=== PATIENT | female | born 1975 | race Caucasian/White ===

== ENCOUNTER 2017-08-05 08:22 | Emergency (ER) | payer OTHER ==
[~2017-08-05] VITALS: Ht 167.6 cm; Wt 120.9 kg
[2017-08-05 08:35] VITALS: TEMP 37.2; Ht 167.6 cm; Wt 120.9 kg
[2017-08-05] MEDS ORDERED: SODIUM CHLORIDE 0.9% 1000ML 1,000 ML IV STA (09:30)
[2017-08-05] MEDS ORDERED: ONDANSETRON INJ 2 MG/ML 2 ML VIAL IV STA ×2 (09:30→10:40)
[2017-08-05] MEDS ORDERED: MoRPHine SULFATE 10 MG/ML CARP/VIAL IV STA (09:30)
[2017-08-05] MEDS ORDERED: OPTIRAY 320 IV PRN (09:45)
[2017-08-05 09:56] LABS: BASO % 0.5 %; BASO ABS # 0.04 K/uL (0-0.2); EOS % 3.8 %; HEMATOCRIT 39.3 % (37-47); HEMOGLOBIN 13.5 g/dL (12.0-16.0); IG# 0.02 K/uL (0.00-0.02); MEAN CELL VOLUME 80.7 fL (80-100); MEAN CORPUSCULAR HEMOGLOBIN 27.7 pg (25-34); MEAN CORPUSCULAR HGB CONC 34.4 g/dl (32-36); MEAN PLATELET VOLUME 10.6 fL (7.4-10.4); MONO % 4.5 %; MONO ABS # 0.35 K/uL (0.11-0.59); NEUT % 58.9 %; NEUT ABS # 4.61 K/uL (1.4-6.5); PLATELET COUNT 188 K/uL (130-400); RED CELL DISTRIBUTION WIDTH CV 14.7 % (11.5-14.5); WHITE BLOOD COUNT 7.82 K/uL (4.8-10.8)
[2017-08-05 10:12] LABS: ALBUMIN 3.8 gm/dl (3.4-5.0); CALCIUM 9.4 mg/dl (8.5-10.1); CREATININE 1.16 mg/dl (0.60-1.20); POTASSIUM 4.1 mmol/L (3.5-5.1)
[2017-08-05 10:15] LABS: TOTAL PROTEIN 8.2 gm/dl (6.4-8.2)
[2017-08-05] MEDS ORDERED: PATIENT'S ALLERGY INFO NEEDS ENTERED SCH (10:15)
--- NOTE | 2017-08-05 10:29 | DIAGNOSTIC IMAGING REPORT ---
CHEST 2 VIEWS ROUTINE CLINICAL HISTORY: Abdominal pain. Dyspnea on exertion. COMPARISON STUDY: No previous studies for comparison. FINDINGS: The lung volumes are normal. No pneumothorax or pleural effusion is noted. Lungs are clear. Cardiac size is normal. Mediastinal contours are normal. There is no evidence for pulmonary edema. IMPRESSION: No acute cardiopulmonary findings. Electronically signed by: Beltran Laws M.D. 08/05/2017 10:27 AM Dictated Date/Time: 08/05/2017 10:27 AM
[2017-08-05] MEDS ORDERED: HYDROmorphone INJ 1 MG/ML SYR IV STA (10:38)
--- NOTE | 2017-08-05 12:41 | DIAGNOSTIC IMAGING REPORT ---
ABD/PELVIS IV AND ORAL CONT CT DOSE: 1576.72 mGy.cm HISTORY: Pain ABDOMINAL PAIN/GI TECHNIQUE: Multiaxial CT images of the abdomen and pelvis were performed following the use of intravenous and oral contrast. A dose lowering technique was utilized adhering to the principles of ALARA. COMPARISON STUDY: None. FINDINGS: Lung bases are clear. Mild fatty infiltration of liver. Uniform enhancement. Prior cholecystectomy. Pancreas is unremarkable. Right kidney shows moderate cortical scarring. Left kidney shows similar cortical scarring with 2 low density nodules versus hyperdense cyst at the inferior and mid aspect left kidney. These measure 1.8 cm. 8 mm exophytic cyst medial aspect left kidney. The bowel pattern is nonobstructive. Evidence for prior appendectomy. Uterus is anteflexed. 1.7 cm left ovarian cyst. 1.2 cm right ovarian cyst. No significant fluid within the pelvic cul-de-sac. IMPRESSION: 1. Cortical scarring of the kidneys bilaterally with 2 hyperdense cysts versus nodular lesions of the left kidney. These measure 1.8 cm respectively 2. Renal ultrasonography is suggested as initial follow-up. 3. Examination is otherwise negative post appendectomy and cholecystectomy. 4. Small bilateral ovarian cysts. The above report was generated using voice recognition software. It may contain grammatical, syntax or spelling errors. Electronically signed by: Jose Mcpherson M.D. 08/05/2017 12:40 PM Dictated Date/Time: 08/05/2017 12:33 PM
[2017-08-05] MEDS ORDERED: HYDR-5688 PO (13:12)
[2017-08-05 13:24] VITALS: BP 147/104; PULSE 86; O2SAT 97
--- NOTE | 2017-08-05 17:33 | EMERGENCY ROOM VISIT NOTE ---
ED Visit Note First contact with patient: 08:44 Chief Complaint: Right flank pain. History of Present Illness: Ms. Cruz is a 41-year-old white female who ambulates into the ED accompanied by male friend complaining of right flank pain. Historically patient reports she has a history of chronic pancreatitis and she is status post cholecystectomy and appendectomy. Patient reports approximately 7 days ago patient had an acute onset of right flank pain. Since that time her pain has been constant but has waxed and waned in intensity. Initially she thought she might have strained a muscle and was treating her discomfort with heating pads and ibuprofen. Then the pain started radiating into the epigastric area after 2 days. She was seen in the ED at [facility]. On her workup lab report showed that her lipase was elevated and an abdominal/pelvic noncontrast CT shows no specific cause; they were evaluating for possible nephrolithiasis. She called her PCP today and was encouraged to come to this hospital for further evaluation and care. Currently patient is complaining of right flank pain. She has difficulty describing her discomfort. She rates her discomfort 9/10. Her pain is radiating into the epigastrium area. Her discomfort worsens with deep inspiration. She has not identified any alleviating factors related to the pain. Associated with her pain she reports she has had constant nausea and the first few days of her illness she was vomiting bile-like material and now she is just dry heaving. Additionally she reports that she is having some watery stools and she is having chills but no low fever. She denies upper respiratory tract symptoms, cough, wheezing, shortness of breath, chest pain, lower abdominal pain, hematemesis, hematochezia, melena, urinary symptoms, hematuria, vaginal bleeding, vaginal discharge. Review of Systems: As noted above in history of present illness. All body systems were reviewed and found to be negative as noted above. Past Medical History: Acute respiratory failure, acute kidney injury, alcohol withdrawal, type 2 diabetes, cervical dysplasia, history of alcohol abuse, hypertension, dyslipidemia. Current Medications: Patient denies. Allergies to Medications: [place]. Social History: Patient is not employed; she feels safe in her home environment ; she is a previous smoker and denies alcohol use. Physical Examination: Vital Signs: Date Time Temp Pulse Resp B/P (MAP) Pulse Ox O2 Delivery O2 Flow Rate FiO2 08/05/17 13:24 86 17 147/104 97 Room Air 08/05/17 12:15 70 20 120/72 99 Room Air 08/05/17 10:45 67 20 124/55 100 Room Air 08/05/17 10:00 84 08/05/17 09:55 88 18 140/95 95 Room Air 08/05/17 08:35 37.2 88 17 137/91 100 Room Air GENERAL: 41-year-old female in mild to moderate distress due to pain, nontoxic- appearing, afebrile and hemodynamically stable. NEUROLOGICAL: Awake, alert and oriented to person, place and time. Answering questions appropriately and following commands. Normal gait. Good hand eye coordination. No focal motor sensory deficits. SKIN: Warm, dry and pink. No soft tissue eruptions or trauma noted. HEENT: Atraumatic and normocephalic. PERRLA. Sclera white and conjunctiva pink. No drainage from naris. Oral cavity moist and pink. Pharynx is nonerythematous or edematous. Speech normal. No lymphadenopathy. Trachea midline. No jugular venous distention. BACK: No tenderness over the bony spine. No tenderness throughout the paraspinous musculature. Moderate right sided CVA tenderness. THORAX: Lungs sounds are clear to auscultation and equal bilaterally with symmetrical chest wall. No wheezing, rales or rhonchi. No crepitus, tenderness , subcutaneous air or deformities noted. HEART: Regular rate and rhythm. No gallops, rubs or murmurs are appreciated. ABDOMEN: Obese and soft with moderate tenderness in the epigastrium.. Positive bowel sounds in all quadrants. No guarding, rigidity or organomegaly. EXTREMITIES: Moves all extremities well on command and with purpose. All distal neurovascular statuses are intact and equal bilaterally. ED Course: Patient is assessed as noted above. Patient's medication list was reviewed. Laboratory Testing Test 08/05/17 09:41 08/05/17 09:45 08/05/17 09:51 Range/Units Urine Color DK YELLOW Urine Appearance CLOUDY CLEAR Urine pH 6.0 4.5-7.5 Urine Specific [place] 1.030 1.000-1.030 Urine Protein 1+ NEG Urine Glucose (UA) 2+ NEG Urine Ketones TRACE NEG Urine Occult Blood NEG NEG Urine Nitrite NEG NEG Urine Bilirubin NEG NEG Urine Urobilinogen NEG NEG Urine Leukocyte Esterase NEG NEG Urine WBC (Auto) 1-5 0-5 /hpf Urine RBC (Auto) >30 0-4 /hpf Urine Hyaline Casts (Auto) 1-5 0-5 /lpf Urine Epithelial Cells (Auto) >30 0-5 /lpf Urine Bacteria (Auto) NEG NEG White Blood Count 7.82 4.8-10.8 K/uL Red Blood Count 4.87 4.2-5.4 M/uL Hemoglobin 13.5 12.0-16.0 g/dL Hematocrit 39.3 37-47 % Mean Corpuscular Volume 80.7 80-100 fL Mean Corpuscular Hemoglobin 27.7 25-34 pg Mean Corpuscular Hemoglobin Concent 34.4 32-36 g/dl Platelet Count 188 130-400 K/uL Mean Platelet Volume 10.6 7.4-10.4 fL Neutrophils (%) (Auto) 58.9 % Lymphocytes (%) (Auto) 32.0 % Monocytes (%) (Auto) 4.5 % Eosinophils (%) (Auto) 3.8 % Basophils (%) (Auto) 0.5 % Neutrophils # (Auto) 4.61 1.4-6.5 K/uL Lymphocytes # (Auto) 2.50 1.2-3.4 K/uL Monocytes # (Auto) 0.35 0.11-0.59 K/uL Eosinophils # (Auto) 0.30 0-0.5 K/uL Basophils # (Auto) 0.04 0-0.2 K/uL RDW Standard Deviation 43.0 36.4-46.3 fL RDW Coefficient of Variation 14.7 11.5-14.5 % Immature Granulocyte % (Auto) 0.3 % Immature Granulocyte # (Auto) 0.02 0.00-0.02 K/uL Sodium Level 134 136-145 mmol/L Potassium Level 4.1 3.5-5.1 mmol/L Chloride Level 103 98-107 mmol/L Carbon Dioxide Level 23 21-32 mmol/L Anion Gap 8.0 3-11 mmol/L Blood Urea Nitrogen 11 7-18 mg/dl Creatinine 1.16 0.60-1.20 mg/dl Est Creatinine Clear Calc Drug Dose 84.6 ml/min Estimated GFR () 67.7 Estimated GFR (Non- 58.4 BUN/Creatinine Ratio 9.8 10-20 Random Glucose 221 70-99 mg/dl Calcium Level 9.4 8.5-10.1 mg/dl Total Bilirubin 0.7 0.2-1 mg/dl Direct Bilirubin 0.1 0-0.2 mg/dl Aspartate Amino Transf (AST/SGOT) 22 15-37 U/L Alanine Aminotransferase (ALT/SGPT) 33 12-78 U/L Alkaline Phosphatase 81 45-117 U/L Total Protein 8.2 6.4-8.2 gm/dl Albumin 3.8 3.4-5.0 gm/dl Amylase Level 49 25-115 U/L Lipase 289 73-393 U/L Bedside Troponin I < 0.030 0-0.045 ng/ml Chest X-Rays: Were read by myself and shows no acute infiltrates, effusions or pneumothorax. Normal heart silhouette and bony anatomy. Contrast Abdominal/Pelvic CT: Was reviewed by myself and read by the radiologist showing cortical scarring of the kidneys bilaterally with 2 hyperdense cysts versus lesions of the left kidney, exam and is otherwise negative status post appendectomy cholecystectomy and small bilateral ovarian cysts. EKG: Was read by myself and shows normal sinus rhythm with a ventricular rate of 80 bpm. Normal axis, intervals and complexes. No acute ST changes indicating ischemia, injury or infarction. No previous to compare. Patient was hydrated with normal saline and she initially received 8 mg of morphine IV for pain and 4 mg of Zofran IV. On reassessment patient complained of exacerbation pain and she received 1 mg of Dilaudid IV and an additional dose of 4 mg of Zofran IV. Patient was reassessed multiple times during her stay in the emergency department. Patient's case was reviewed with Dr. Sarmiento; we agreed on diagnostic approach, treatment, disposition and plan. Patient was educated about today's findings and instructed on her treatment plan ; she verbalizes understanding and agreement with plan. Clinical Impression: Flank pain. Epigastric abdominal pain. Decision-Making: Initially my differential diagnosis I considered retained gallstone, kidney stone, pyelonephritis, hepatitis, pancreatitis, bowel obstruction and other causes. Disposition: Patient discharged home in stable condition; prior to departure she was reassessed and subjectively reported she was feeling better and rated her discomfort 6/10. She reported resolution of nausea also. Plan: Patient was placed on a sliding pain medication scale of ibuprofen, acetaminophen and [place]; her name was checked on the state database and no red flags are noted. She is given appropriate narcotic precautions. Patient reports that she was prescribed Zofran from her last ED visit and I encouraged her to use that. Patient was encouraged to contact her family physician for recheck and possible referral to see GI specialist. Patient was encouraged return the ED for worsening pain, worsening vomiting, bloody vomitus, fevers or any new/concerning symptoms.
== END 2017-08-05 13:28 | disposition home or self-care (01) ==
LOC: C.EDB 08:25
DX: R10.13 Epigastric pain (principal); N83.201 Unspecified ovarian cyst, right side; N83.202 Unspecified ovarian cyst, left side; I10 Essential (primary) hypertension; E11.9 Type 2 diabetes mellitus without complications; E78.5 Hyperlipidemia, unspecified; F10.21 Alcohol dependence, in remission; Z90.49 Acquired absence of other specified parts of digestive tract; Z87.891 Personal history of nicotine dependence; Z87.09 Personal history of other diseases of the respiratory system; Z87.410 Personal history of cervical dysplasia

== ENCOUNTER 2025-02-20 12:19 | Inpatient (IN) ==
[2025-02-20] MEDS: ACETAMINOPHEN 500 MG TAB PO STA (13:08)
[2025-02-20] MEDS: IBUPROFEN 600 MG TAB PO STA (13:09)
--- NOTE | 2025-02-20 13:12 | XRay Report ---
XR pelvis 1-2V routine CLINICAL HISTORY: fall COMPARISON: 10/08/2017 FINDINGS: No fracture or dislocation. No significant degenerative change at the hips. SI joints are unremarkable. There are lower lumbar degenerative changes. IMPRESSION: No fracture seen at the pelvis or hips. ACT 112: Negative or not required by law. Electronically signed by: Live Villatoro M.D. 02/20/2025 1:11 PM
--- NOTE | 2025-02-20 13:13 | XRay Report ---
XR chest 1V portable CLINICAL HISTORY: fall COMPARISON STUDY: None FINDINGS: Heart size and pulmonary vasculature are normal. No consolidation or pleural effusion. No p neumothorax. No displaced rib fractures seen. IMPRESSION: No acute findings seen. ACT 112: Negative or not required by law. Electronically signed by: Live Villatoro M.D. 02/20/2025 1:12 PM
--- NOTE | 2025-02-20 13:14 | XRay Report ---
XR hand RT min 3V routine CLINICAL HISTORY: fall out of truck COMPARISON: None FINDINGS: No fracture or dislocation. No significant degenerative change. IMPRESSION: No fracture seen. ACT 112: Negative or not required by law. Electronically signed by: Live Villatoro M.D. 02/20/2025 1:13 PM
[2025-02-20 13:32] LABS: Appearance Urine Clear (Clear); Bacteria Urine Automated None Seen (None Seen); Cast Urine Automated 0-2 /lpf (0-2); Glucose Urine UA 3+ (Negative); RBC Urine Automated 0-2 /hpf (0-2); WBC Urine Automated 0-5 /hpf (0-5)
[2025-02-20 13:38] LABS: Alanine Aminotransferase 27.0 U/L (7-52); Albumin Globulin Ratio 1.0 (0.9-2); Albumin Level 4.1 gm/dl (3.4-5.0); Alkaline Phosphatase 74.0 U/L (34-104); Anion Gap 14.0 (3-11); Bilirubin,Total 0.5 mg/dl (0.2-1.0); Blood Urea Nitrogen 11.0 mg/dl (6-23); Calcium 9.7 mg/dl (8.6-10.3); Carbon Dioxide 21.0 mmol/L (21-32); Chloride 102.0 mmol/L (98-107); Creatinine Clr Calc Pharmacy 85.7 ml/min; Globulin 4.1 gm/dl (2.5-4.0); Glucose 480.0 mg/dl (70-99(Fasting)); Potassium 4.1 mmol/L (3.5-5.1); Sodium 137.0 mmol/L (136-145); Total Protein 8.2 gm/dl (6.0-8.3)
[2025-02-20 13:48] LABS: Thyroid Stimulating Hormone 0.609 uIu/ml (0.300-4.500)
[2025-02-20 13:54] LABS: Acetaminophen < 3 ug/ml (10-30); Salicylate < 3.0 mg/dl (3.0-30)
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
[2025-02-20 14:01] LABS: Amphetamines+Metham, Urine Neg (Neg); MDMA (Ecstacy), Urine Neg (Neg); Marijuana, Urine Neg (Neg)
[2025-02-20 14:31] LABS: ALC (manual) 2.31 K/uL (1.2-3.4); ANC (manual) 1.34 K/uL (1.4-6.5); Hematocrit (blood only) 43.6 % (37.0-47.0); Hemoglobin 15.5 g/dl (12.0-16.0); Large Granular Lymph # (manua 1.01 K/uL; Large Granular Lymph % (manual) 25 %; Mean Corpuscular Hemoglobin 30.7 pg (25.0-34.0); Mean Corpuscular Volume 86.3 fL (80.0-100.0); Platelet Count 114 K/uL (130-400); RBC Morphology Unremarkable; RDW Standard Deviation 41.6 fL (36.4-46.3); Red Blood Count 5.05 M/uL (4.20-5.40); White Blood Count 4.05 K/ul (4.8-10.8)
[2025-02-20] MEDS: THIAMINE HCL 100 MG TAB PO ONE (15:38)
[2025-02-20] MEDS: MULTIVITAMIN TAB PO ONE (15:38)
[2025-02-20] MEDS: LORazepam 1 MG/1 ML SYR ED Inj Use IV STA ×2 (15:39→19:27)
[2025-02-20] MEDS: FOLIC ACID 1 MG TAB PO ONE (15:39)
[2025-02-20] MEDS: SODIUM CHLORIDE 0.9% 1,000 ML IV ONE (15:39)
[2025-02-20] MEDS: INSULIN ASPART PER UNIT CHARGE SC STA (16:05)
--- NOTE | 2025-02-20 16:27 | Emergency Department Note ---
ED Visit Note I assumed care at the change of shift. The patient was receiving IV saline for hydration. She was found to be intoxicated with alcohol. She had made suicidal threats. She was a 302 petition/involuntary psychiatric admission. She was to be evaluated by psychiatry case management at 1900, once clinically sober. The patient did become a bit agitated and was ordered for 2 mg of IV Ativan. This seemed to help, her blood pressure also improved with the Ativan. The patient was seen by psychiatry case management. She was felt to be impulsive and at risk for self-harm. Given the circumstances and her presentation, the 302 petition was upheld. I did sign the medical portion. As the patient has been hyperglycemic, hypertensive and likely will be withdrawing from alcohol, she will be admitted medically with a psych consult. I did speak with the case management team at length, I spoke with the on-call hospitalist. The patient is aware of the plan. .
[2025-02-20] MEDS ORDERED: INSULIN ASPART PER UNIT CHARGE SC SCH (16:30)
[2025-02-20] MEDS: LANTUS PER UNIT CHARGE SQ SCH ×2 (16:40→22:09)
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
[2025-02-20] MEDS ORDERED: GABAPENTIN 1200MG ALCOHOL WITHDRAWAL LOAD PO STA (19:38)
[2025-02-20] MEDS ORDERED: GLUCOSE 40% GEL 15 GM TUBE PO PRN (19:38)
[2025-02-20] MEDS ORDERED: ACETAMINOPHEN 325 MG TAB PO PRN (19:38)
[2025-02-20] MEDS ORDERED: CARBOHYDRATES FOR HYPOGLYCEMIA PO PRN (19:38)
[2025-02-20] MEDS ORDERED: DEXTROSE 50% 50 ML SYRINGE IV PRN (19:38)
[2025-02-20] MEDS ORDERED: GLUCOSE 10 TAB/TUBE PO PRN (19:38)
[2025-02-20] MEDS ORDERED: PHARMACY GLYCEMIC MGMT CONSULT PRN (19:38)
[2025-02-20] MEDS ORDERED: POLYETHYLENE (MIRALAX) 17 GM PACK PO PRN (19:38)
[2025-02-20] MEDS ORDERED: GLUCAGON FOR INJ 1 MG VIAL SQ PRN (19:38)
[2025-02-20] MEDS ORDERED: LORAZEPAM IV PRN (19:51)
[2025-02-20] MEDS: GABAPENTIN 600 MG TAB PO ONE (20:18)
[2025-02-20] MEDS ORDERED: PRAZOSIN HCL 1 MG CAP PO SCH (21:00)
[2025-02-20] MEDS ORDERED: MIRTAZAPINE TAB 15 MG TAB PO SCH (21:00)
[2025-02-20] MEDS: INSULIN ASPART PER UNIT CHARGE SC SCH (22:10)
[2025-02-20] MEDS: ONDANSETRON INJ 2 MG/ML 2 ML VIAL IV PRN (22:10)
[2025-02-20] MEDS: LORazepam Inj 1 MG in SYRINGE 0.5 ML IV PRN (23:26)
[2025-02-21] MEDS: INSULIN ASPART PER UNIT CHARGE SC SCH (00:57)
[2025-02-21] MEDS: GABAPENTIN 600 MG TAB PO SCH (01:32)
[2025-02-21 07:55] LABS: Anion Gap 5.0 (3-11); Blood Urea Nitrogen 10.0 mg/dl (6-23); Calcium 8.6 mg/dl (8.6-10.3); Carbon Dioxide 28.0 mmol/L (21-32); Chloride 106.0 mmol/L (98-107); Creatinine Clr Calc Pharmacy 95.1 ml/min; Glucose 262.0 mg/dl (70-99(Fasting)); Potassium 3.6 mmol/L (3.5-5.1); Sodium 139.0 mmol/L (136-145)
[2025-02-21 08:11] LABS: Hematocrit (blood only) 38.4 % (37.0-47.0); Hemoglobin 13.3 g/dl (12.0-16.0); Mean Corpuscular Hemoglobin 30.9 pg (25.0-34.0); Mean Corpuscular Volume 89.3 fL (80.0-100.0); Platelet Count 85 K/uL (130-400); RDW Standard Deviation 45.2 fL (36.4-46.3); Red Blood Count 4.30 M/uL (4.20-5.40); White Blood Count 4.16 K/ul (4.8-10.8)
--- NOTE | 2025-02-21 08:16 | Pharmacy Report ---
Pharmacy Glycemic Short Note 2 - Date of Service February 21, 2025 - Glycemic Short BSG Results (Last 24 hours): 02/20/25 02/20/25 02/20/25 12:57 16:33 17:43 Glucose 480 H* POC Glucose 326 H* 302 H* 02/20/25 02/20/25 02/21/25 21:36 23:31 07:01 Glucose 262 H POC Glucose 277 H 255 H 02/21/25 08:02 Glucose POC Glucose 294 H OUTPATIENT ANTIDIABETIC REGIMEN: * Lantus, Lispro - hasn't started taking yet, unsure of doses ASSESSMENT: * 49 year old admitted with suicidal ideation/ETOH abuse. Type 2 diabetic - prescribed insulin a couple days ago, but has not yet started to take. BSGs >400 on admission. Received total of 40 units of insulin yesterday, of which 20 units were basal. Fasting BSG 262 mg/dL - will titrate up to Lantus 25 units daily and tighten CF/CR this AM PLAN FOR INPATIENT GLYCEMIC CONTROL: * Hold outpatient oral diabetes medications * Basal insulin * Lantus 25 units SQ once daily * Bolus insulin * NovoLog per scale ACHS or Q6hrs while NPO * Goal Range: Low 110 mg/dL - High 140 mg/dL * Correction Factor: 15 mg/dL/unit * Nutritional / Prandial insulin per carb ratio of 1 unit per 5 grams CHO consumed
[2025-02-21] MEDS: FOLIC ACID 1 MG TAB PO SCH (08:59)
[2025-02-21] MEDS: MULTIVITAMIN TAB PO SCH (09:00)
[2025-02-21] MEDS: THIAMINE HCL 100 MG TAB PO SCH (09:00)
[2025-02-21 09:07] LABS: Hemoglobin A1C 12.3 % (4.5-5.6)
[2025-02-21] MEDS: LANTUS PER UNIT CHARGE SQ SCH ×2 (10:10→20:17)
[2025-02-21] MEDS: LORazepam Inj 2 MG in SYRINGE 1 ML IV PRN (11:07)
[2025-02-21] MEDS ORDERED: PHENobarbital PO Alcohol Withdrawal PO STA (11:38)
--- NOTE | 2025-02-21 11:52 | Hospitalist Progress Note ---
Date of Service February 21, 2025 Assessment & Plan (1) Alcohol withdrawal with complication with inpatient treatment: (2) Hyperglycemia due to type 2 diabetes mellitus: (3) Diabetes mellitus type 2, insulin dependent: (4) Alcohol use disorder: (5) Major depressive disorder: (6) Suicidal ideation: (7) HTN (hypertension): (8) Thrombocytopenia: Plan Patient 49-year-old female initially presented intoxicated on alcohol with suicidal thoughts. Admitted under 302 for alcohol withdrawal. Patient admits to drinking excessive amounts of alcohol on a regular basis. Patient is extremely high risk for severe alcohol withdrawal symptoms and delirium tremors. Patient needs management in the hospital with close monitoring. Patient was already needing as needed lorazepam to manage symptoms. With her previous history of gabapentin abuse concerned that this would not be effective treatment option for her. Transfer to PCU Start phenobarbital IM loading doses for alcohol withdraw and continue with oral taper. As needed phenobarbital for increased CIWA score. Replace potassium Follow electrolytes Patient's thrombocytopenia and mild leukopenia most likely due to bone marrow suppression resulting from her excessive and chronic alcohol use. Will continue to monitor. Communication with behavioral health staff, evaluations ongoing Case management updated as well and will continue to work with patient and family to determine most appropriate plans for disposition Admission and Anticipated Discharge Date Admission Date: February 20, 2025 Subjective Patient complains of headache, body aches, anxiety and tremor. Also indicates that she has a history of gabapentin misuse/dependency. He does not feel any benefits from current gabapentin dosing. Physical Exam Physical Exam: Constitutional: Alert, moderate distress HEENT: Mucous membranes moist. Lungs: Clear to auscultation, decreased, no wheezes rales or rhonchi CV: S1-S2, regular Abdomen: Soft, nontender, nondistended Extremities: No significant edema Neuro: Tremor, generally weak Psych: Cooperative, depressed affect, tearful, admitting to suicidal ideation yesterday Results & Data Results & Data Vital Signs (Past 12 Hours) Vital Signs Temp Pulse Resp BP Pulse Ox Pulse Ox O2 Del Method 02/21/25 09:40 36.5 C 87 20 150/89 H 96 Room Air 02/21/25 08:54 36.6 C 79 15 167/99 H 97 Room Air 02/21/25 04:56 36.4 C L 71 18 122/81 94 Room Air 02/21/25 00:53 36.8 C 87 18 106/72 97 Room Air 02/21/25 00:00 96 O2 Del Method 02/21/25 09:40 02/21/25 08:54 02/21/25 04:56 02/21/25 00:53 02/21/25 00:00 Room Air Diagnostic Findings Reviewed imaging, laboratory and diagnostic studies. Pertinent findings as below. WBCs 4.1 Hemoglobin 13.3 Platelets of 85 Electrolytes stable Creatinine 0.88 Hemoglobin A1c 12.3% LFTs within normal range
[2025-02-21] MEDS: POTASSIUM CHLORIDE CRTAB 20 MEQ TABCR PO STA (14:10)
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
[2025-02-21] MEDS ORDERED: GABAPENTIN 600 MG TAB PO SCH (15:30)
--- NOTE | 2025-02-21 18:01 | Electrocardiogram Report ---
Test Reason : Blood Pressure : */* mmHG Vent. Rate : 103 BPM Atrial Rate : 103 BPM P-R Int : 134 ms QRS Dur : 92 ms QT Int : 342 ms P-R-T Axes : 60 -5 53 degrees QTcB Int : 448 ms Sinus tachycardia with occasional Premature ventricular complexes Otherwise normal ECG When compared with ECG of 05-Aug-2017 09:41, Premature ventricular complexes are now Present Confirmed by Max Pena ([id number]) on 02/21/2025 6:00:42 PM Referred By: REFERRED SELF Confirmed By: Max Pena
[2025-02-22] MEDS: INSULIN ASPART PER UNIT CHARGE SC SCH (01:01)
[2025-02-22] MEDS: MELATONIN 3 MG TAB PO PRN (02:33)
[2025-02-22 03:03] VITALS: RESP 18
[2025-02-22 06:18] LABS: Hematocrit (blood only) 39.0 % (37.0-47.0); Hemoglobin 13.3 g/dl (12.0-16.0); Mean Corpuscular Hemoglobin 30.5 pg (25.0-34.0); Mean Corpuscular Volume 89.4 fL (80.0-100.0); Platelet Count 84 K/uL (130-400); RDW Standard Deviation 44.5 fL (36.4-46.3); Red Blood Count 4.36 M/uL (4.20-5.40); White Blood Count 4.62 K/ul (4.8-10.8)
[2025-02-22 06:34] LABS: Anion Gap 7.0 (3-11); Blood Urea Nitrogen 12.0 mg/dl (6-23); Calcium 8.9 mg/dl (8.6-10.3); Carbon Dioxide 25.0 mmol/L (21-32); Chloride 104.0 mmol/L (98-107); Creatinine Clr Calc Pharmacy 94.7 ml/min; Glucose 228.0 mg/dl (70-99(Fasting)); Magnesium 1.7 mg/dl (1.7-2.4); Potassium 4.0 mmol/L (3.5-5.1); Sodium 136.0 mmol/L (136-145)
--- NOTE | 2025-02-22 11:43 | Pharmacy Report ---
Pharmacy Glycemic Short Note 2 - Date of Service February 22, 2025 - Glycemic Short BSG Results (Last 24 hours): 02/21/25 02/21/25 02/21/25 12:08 12:09 12:34 Glucose POC Glucose 329 H* 287 H 237 H 02/21/25 02/21/25 02/21/25 12:57 16:27 20:13 Glucose 273 H POC Glucose 204 H 123 H 02/22/25 02/22/25 02/22/25 00:57 05:44 08:38 Glucose 228 H POC Glucose 154 H 213 H 02/22/25 11:13 Glucose POC Glucose 227 H OUTPATIENT ANTIDIABETIC REGIMEN: * Lantus, Lispro - hasn't started taking yet, unsure of doses * HbA1c: 12.3% (02/21/25) ASSESSMENT: 02/22: * Tosin received 86 units of insulin yesterday, 25 of which were basal. BSGs were: 220-355-138-123 mg/dL. * Fasting BSG was 213 mg/dL this AM. Continue with 25 units of basal this AM. Will ordered a scaled basal HS dose to provider either 5, 10, or 15 units depending on the BSG. Expecting basal to have a significant basal deficiency and once it reaches steady state, we may need to back off basal dosing. * Ordered and tolerating a T2DM diet. Tightened carb ratio this AM and lunchtime BSG still went up. Will tighten correction factor with lunch. 02/21: * 49 year old admitted with suicidal ideation/ETOH abuse. Type 2 diabetic - prescribed insulin a couple days ago, but has not yet started to take. BSGs >400 on admission. Received total of 40 units of insulin yesterday, of which 20 units were basal. Fasting BSG 262 mg/dL - will titrate up to Lantus 25 units daily and tighten CF/CR this AM PLAN FOR INPATIENT GLYCEMIC CONTROL: * Basal insulin * Lantus 25 units SC AM * Lantus 5-15 units SC PM (see eMAR for more details) * Bolus insulin * NovoLog per scale ACHS or Q6hrs while NPO * Goal Range: Low 110 mg/dL - High 140 mg/dL * Correction Factor: 12 mg/dL/unit * Nutritional / Prandial insulin per carb ratio of 1 unit per 4 grams CHO consumed
--- NOTE | 2025-02-22 11:52 | Hospitalist Progress Note ---
Date of Service February 22, 2025 Assessment & Plan (1) Alcohol withdrawal with complication with inpatient treatment: (2) Hyperglycemia due to type 2 diabetes mellitus: (3) Diabetes mellitus type 2, insulin dependent: (4) Alcohol use disorder: (5) Major depressive disorder: (6) Suicidal ideation: (7) HTN (hypertension): (8) Thrombocytopenia: Plan Patient's withdrawal symptoms significantly more controlled with phenobarbital today. Continue taper of phenobarbital Electrolytes stable monitor as needed Patient may shower communication with case management and behavioral health to coordinate next step in patient's care. Anticipate medically she may be ready for discharge tomorrow Admission and Anticipated Discharge Date Admission Date: February 20, 2025 Subjective Patient denies any chest pain or breath. Minimal tremors. No significant headache. Tolerating her diet. Asking the shower Physical Exam Physical Exam: Constitutional: Alert, nontoxic HEENT: Mucous membranes moist. Lungs: Clear to auscultation, decreased, no wheezes rales or rhonchi CV: S1-S2, regular Abdomen: Soft, nontender, nondistended Extremities: No significant edema Neuro: No focal deficits, no noticeable tremor. Psych: Cooperative, normal mood Results & Data Results & Data Vital Signs (Past 12 Hours) Vital Signs Temp Pulse Pulse Resp BP Pulse Ox O2 Del Method 02/22/25 11:10 36.7 C 84 18 129/88 98 Room Air 02/22/25 09:47 78 02/22/25 08:40 36.6 C 76 18 146/100 H 99 Room Air 02/22/25 03:02 36.5 C 76 18 125/76 96 Room Air 02/22/25 01:56 36.5 C 84 20 127/81 96 Room Air Diagnostic Findings Reviewed imaging, laboratory and diagnostic studies. Pertinent findings as below. Potassium 4.0 Magnesium 1.7 Glucose was reviewed CBC stable
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
[2025-02-22] MEDS: SERTRALINE HCL 50 MG TABLET PO SCH (13:56)
[2025-02-22] MEDS ORDERED: GABAPENTIN 600 MG TAB PO SCH (19:30)
[2025-02-23 07:33] VITALS: TEMP 98.2; O2SAT 97
[2025-02-23] MEDS: LANTUS PER UNIT CHARGE SQ SCH (08:11)
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
[2025-02-23 11:30] VITALS: BP 122/88
[2025-02-23 13:48] VITALS: PULSE 100
[2025-02-24] MEDS ORDERED: GABAPENTIN 600 MG TAB PO SCH (07:30)
== END 2025-02-23 14:38 | DRG 918 ==
LOC: ED 12:19 → SUATTDRO 19:21 → EDINP 19:21 → 2W 19:38 → 2E 02-21 13:42

== ENCOUNTER 2025-02-23 12:04 | Inpatient (IN) ==
[2025-02-23] MEDS ORDERED: BISMUTH SUBSALICYLATE 262 MG CHEW PO PRN (12:49)
[2025-02-23] MEDS ORDERED: MAGNESIUM HYDROXIDE SUSP 30 ML UDC PO PRN (12:49)
[2025-02-23] MEDS ORDERED: ALUMINUM/MAGNESIUM SUSP 30 ML UDC PO PRN (12:49)
[2025-02-23] MEDS ORDERED: SODIUM CHLORIDE 0.65% NA SOLN 45 ML (OCEAN) PRN (12:49)
[2025-02-23] MEDS ORDERED: PHARMACY GLYCEMIC MGMT CONSULT PRN (12:57)
--- NOTE | 2025-02-23 13:54 | Pharmacy Report ---
Pharmacy Glycemic Short Note 2 - Date of Service February 23, 2025 - Glycemic Short OUTPATIENT ANTIDIABETIC REGIMEN: * Lantus, Lispro - hasn't started taking yet, unsure of doses * HbA1c: 12.3% (02/21/25) ASSESSMENT: 02/23: * Patient being discharged/admitted to [facility]. * Patient received 87 units of insulin yesterday, including 35 units of basal. Fasting this morning remains above goal- 201 mg/dL. Will set scale for 15-40% increase in lantus. * BSGs did trend downward yesterday evening- will continue with current novolog parameters 02/22: * Tosin received 86 units of insulin yesterday, 25 of which were basal. BSGs were: 240-270-163-123 mg/dL. * Fasting BSG was 213 mg/dL this AM. Continue with 25 units of basal this AM. Will ordered a scaled basal HS dose to provider either 5, 10, or 15 units depending on the BSG. Expecting basal to have a significant basal deficiency and once it reaches steady state, we may need to back off basal dosing. * Ordered and tolerating a T2DM diet. Tightened carb ratio this AM and lunchtime BSG still went up. Will tighten correction factor with lunch. 02/21: * 49 year old admitted with suicidal ideation/ETOH abuse. Type 2 diabetic - prescribed insulin a couple days ago, but has not yet started to take. BSGs >400 on admission. Received total of 40 units of insulin yesterday, of which 20 units were basal. Fasting BSG 262 mg/dL - will titrate up to Lantus 25 units daily and tighten CF/CR this AM PLAN FOR INPATIENT GLYCEMIC CONTROL: * Basal insulin * Lantus 30 units SC AM * Lantus 10-20 units SC PM (see eMAR for more details) * Bolus insulin * NovoLog per scale ACHS or Q6hrs while NPO * Goal Range: Low 110 mg/dL - High 140 mg/dL * Correction Factor: 12 mg/dL/unit * Nutritional / Prandial insulin per carb ratio of 1 unit per 4 grams CHO consumed
[2025-02-23] MEDS ORDERED: GLUCAGON FOR INJ 1 MG VIAL SQ PRN (14:00)
[2025-02-23] MEDS ORDERED: CARBOHYDRATES FOR HYPOGLYCEMIA PO PRN (14:00)
[2025-02-23] MEDS ORDERED: DEXTROSE 50% 50 ML SYRINGE IV PRN (14:00)
[2025-02-23] MEDS ORDERED: GLUCOSE 40% GEL 15 GM TUBE PO PRN (14:00)
[2025-02-23] MEDS ORDERED: GLUCOSE 10 TAB/TUBE PO PRN (14:00)
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
[2025-02-23] MEDS: INSULIN ASPART PER UNIT CHARGE SC SCH (18:49)
[2025-02-23] MEDS: LANTUS PER UNIT CHARGE SQ SCH (21:05)
[2025-02-24] MEDS: PNEUMOCOCCAL VACCINE (PCV20) 20-VAL CONJ-DIP CRM/PF 0.5 ML SYR IM ONE (01:09)
[2025-02-24 07:44] LABS: Cholesterol 216.0 mg/dl (0-200); HDL Cholesterol 41.0 mg/dl; Triglycerides 107.0 mg/dl (0-150)
[2025-02-24] MEDS: MULTIVITAMIN TAB PO SCH (08:43)
[2025-02-24] MEDS: SERTRALINE HCL 50 MG TABLET PO SCH (08:44)
[2025-02-24] MEDS: LANTUS PER UNIT CHARGE SQ SCH (09:19)
[2025-02-24 14:20] LABS: Appearance Urine Cloudy (Clear); Bacteria Urine Automated 2+ (None Seen); Cast Urine Automated 0-2 /lpf (0-2); Glucose Urine UA 3+ (Negative); RBC Urine Automated >20 /hpf (0-2); WBC Urine Automated >50 /hpf (0-5)
[2025-02-24] MEDS ORDERED: LORazepam 1 MG TAB PO PRN ×3 (16:28)
[2025-02-24] MEDS: CHOLECALCIFEROL 125 MCG (5,000 UNITS) TAB PO SCH (16:48)
[2025-02-24] MEDS: CIPROFLOXACIN 500 MG TAB PO SCH (16:48)
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
[2025-02-24] MEDS: PSYLLIUM HUSK 4GM PACKET PO SCH (17:44)
[2025-02-24 22:47] VITALS: O2SAT 99
[2025-02-25 06:24] VITALS: RESP 16
[2025-02-25] MEDS: LANTUS PER UNIT CHARGE SQ SCH ×2 (09:23→20:52)
--- NOTE | 2025-02-25 13:46 | Pharmacy Report ---
Pharmacy Glycemic Short Note 2 - Date of Service February 25, 2025 - Glycemic Short BSG Results (Last 24 hours): 02/24/25 02/24/25 02/25/25 16:53 20:59 08:35 POC Glucose 259 H 182 H 243 H 02/25/25 11:57 POC Glucose 287 H OUTPATIENT ANTIDIABETIC REGIMEN: * Lantus, Lispro - hasn't started taking yet, unsure of doses * HbA1c: 12.3% (02/21/25) ASSESSMENT: 02/25/25: * Blood sugars remain poorly controlled * Switching basal insulin to once daily w/ low dose scale this evening to facilitate discharge (possibly tomorrow) 02/23: * Patient being discharged/admitted to [facility]. * Patient received 87 units of insulin yesterday, including 35 units of basal. Fasting this morning remains above goal- 201 mg/dL. Will set scale for 15-40% increase in lantus. * BSGs did trend downward yesterday evening- will continue with current novolog parameters 02/22: * Tosin received 86 units of insulin yesterday, 25 of which were basal. BSGs were: [phone] mg/dL. * Fasting BSG was 213 mg/dL this AM. Continue with 25 units of basal this AM. Will ordered a scaled basal HS dose to provider either 5, 10, or 15 units depending on the BSG. Expecting basal to have a significant basal deficiency and once it reaches steady state, we may need to back off basal dosing. * Ordered and tolerating a T2DM diet. Tightened carb ratio this AM and lunchtime BSG still went up. Will tighten correction factor with lunch. 02/21: * 49 year old admitted with suicidal ideation/ETOH abuse. Type 2 diabetic - prescribed insulin a couple days ago, but has not yet started to take. BSGs >400 on admission. Received total of 40 units of insulin yesterday, of which 20 units were basal. Fasting BSG 262 mg/dL - will titrate up to Lantus 25 units daily and tighten CF/CR this AM PLAN FOR INPATIENT GLYCEMIC CONTROL: * Basal insulin * Lantus 50 units SC daily * Lantus 0-10-20 units SC HS (see EHR for details) * Bolus insulin * NovoLog per scale ACHS or Q6hrs while NPO * Goal Range: Low 110 mg/dL - High 140 mg/dL * Correction Factor: 10 mg/dL/unit * Nutritional / Prandial insulin per carb ratio of 1 unit per 3 grams CHO consumed
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
[2025-02-25] MEDS: ACETAMINOPHEN 325 MG TAB PO PRN (16:28)
[2025-02-26 06:31] VITALS: TEMP 97.7
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
[2025-02-26 14:51] VITALS: BP 115/74; PULSE 108
[2025-02-26] MEDS ORDERED: LANTUS PER UNIT CHARGE SQ ONE (17:00)
[2025-02-27] MEDS ORDERED: LANTUS PER UNIT CHARGE SQ SCH (09:00)
== END 2025-02-26 16:18 | disposition home or self-care (01) | DRG 882 ==
LOC: 3S 14:40